=== PATIENT | female | born 1965 | race African-American/Black ===

== ENCOUNTER → 2017-04-19 | Day surgery (SDC) | payer BC, MEDICAID ==
[~2017-04-19] MED LIST: ADVIL200 M2 PO; FISH OIL 1,0001 EAC1 PO; FLEXERIL10 MG PO; HYDROCODON-ACE1 EAC7 PO; KEFLEX PO; PRENATAL MULITV1 TAB PO; TYLOX 5/500 CAP1 CAP PO; VOLTAREN75 MG PO
--- NOTE | ~2017-04-19 | OR ---
Unit #: [id number] #: [id number] Patient: CHRISTINA TORRES [id number] [address] [address] [id number] MR#: [id number] NAME: CHIRSTINA TORRES ROOM: Date of Procedure: 04/19/2017 Admission Date: 04/19/2017 Surgeon: Michael Godwin M.D. : 1965 Attending Physician: Luis Godwin Primary Care Physician: [facility] OPERATIVE NOTE JOB NOTE: CC: [facility] [place] PROCEDURE PERFORMED Lumbar epidural steroid injection under x-ray guided needle placement with provider administered conscious sedation. PREOPERATIVE DIAGNOSES 1. Acute lumbar radiculitis. 2. Spinal stenosis, lumbosacral spine. 3. Degenerative joint disease, lumbosacral spine. 4. Degenerative disk disease, lumbosacral spine. INDICATIONS FOR PROCEDURE The patient presents today with longstanding history of chronic lumbar radicular pain secondary to her underlying degenerative processes. She is generally fairly well managed medically with ongoing continuous conservative measures, which consist of medications as well as self-directed physical activity. She does however occasionally experience exacerbations, which to date have only responded to epidural steroid injections. Her usual amount relief is 80% to 100% for 10 to 16 weeks. She is currently experiencing a 2 to 4 week history of just such an exacerbation, which has failed to respond to conservative therapy. Her symptoms are similar to the past and do coordinate well with her underlying x-ray studies. After discussing risks and benefits of proceeding today with an L5-S1 epidural steroid injection, the patient agreed this would be the appropriate course of action. DESCRIPTION OF PROCEDURE She was then taken to the operating room, where she was prepped and draped in sterile manner. Standard monitors were applied. She refused all forms of sedation and lumbar epidural space was accessed at the L5-S1 level using loss of resistance technique and x-ray guidance. Needle placement was confirmed with injection of 2 mL of Omnipaque. There was good superior and inferior flow at this L5-S1 needle placement. Following successful needle placement confirmation, the patient received an injectate containing 4 mL normal saline and 80 mg of methylprednisolone. She tolerated this procedure well. She was discharged home with followup instructions, which include an offer to return to this clinic as early as 08/20/2017 if we could be of further service to her. Dictated by... Michael Godwin M.D. Unit #: [id number] #: [id number] Patient: CHRISTINA TORRES JORDAN/trav TD: 04/19/2017 22:43 JOB #: [id number] SUR[facility] CENTER OPERATIVE NOTE Page 1 of 1 X Luis Godwin MD X PROCEDURE OPERATIVE NOTE
== END | disposition home or self-care (01) ==
LOC: CCSC 12:40
PROVIDERS: Anesthesiology
PROC: 3E0R3BZ Introduction of Anesthetic Agent into Spinal Canal, Percutaneous Approach (ICD-10-PCS; 2017-04-19)
PROC: 3E0R33Z Introduction of Anti-inflammatory into Spinal Canal, Percutaneous Approach (ICD-10-PCS; principal; 2017-04-19 14:00)
DX: M51.17 Intervertebral disc disorders with radiculopathy, lumbosacral region (principal); M48.07 Spinal stenosis, lumbosacral region; M47.27 Other spondylosis with radiculopathy, lumbosacral region; Z79.1 Long term (current) use of non-steroidal anti-inflammatories (NSAID)
CPT/HCPCS: J1040; J2250